=== PATIENT | male | born 1995 | race American Indian/Alaskan Native ===

== ENCOUNTER 2021-09-09 15:28 | Emergency (ER) | payer SELFPAY ==
[2021-09-09 18:22] VITALS: BP 148/94
[2021-09-09] MEDS ORDERED: ONDANSETRON 4 MG ODT TAB PO ONE ×2 (20:24→23:10)
[2021-09-09] MEDS ORDERED: oxyCODONE /ACETAMINOPHEN 5-325MG TAB PO ONE ×2 (20:24→23:10)
[2021-09-09] MEDS ORDERED: IBUPROFEN 600 MG TAB PO ONE ×2 (20:24→23:10)
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
== END 2021-09-09 23:47 | disposition home or self-care (01) ==
LOC: ED 15:28
DX: M62.830 Muscle spasm of back (principal); M62.838 Other muscle spasm; S29.012A Strain of muscle and tendon of back wall of thorax, initial encounter; V89.2XXA Person injured in unspecified motor-vehicle accident, traffic, initial encounter; Y93.89 Activity, other specified; Y92.89 Other specified places as the place of occurrence of the external cause; Y99.8 Other external cause status
CPT/HCPCS: 70450; 72125; 72131; 99284; J3490; Q0162